=== PATIENT | male | born 1985 | race Caucasian/White ===

== ENCOUNTER 2023-04-21 13:39 | Emergency (ER) | payer OTHER ==
[2023-04-21 14:17] VITALS: BP 126/79; PULSE 83; RESP 18; TEMP 97.3; BMI 24.2
== END 2023-04-21 16:03 | disposition home or self-care (01) ==
LOC: JER 13:39
DX: S09.90XA Unspecified injury of head, initial encounter (principal); W01.0XXA Fall on same level from slipping, tripping and stumbling without subsequent striking against object, initial encounter; W22.8XXA Striking against or struck by other objects, initial encounter; Y99.0 Civilian activity done for income or pay; H57.89 Other specified disorders of eye and adnexa
CPT/HCPCS: 70450-TC; 70486-TC; 72125-TC; 99284-25